=== PATIENT | male | born 2000 | race Hispanic/Latino ===

== ENCOUNTER 2021-03-17 17:27 | Emergency (ER) | payer SELFPAY ==
--- NOTE | 2021-03-17 19:59 | EDPHYS ---
Physician Documentation [facility] Name: Juan Manuel Gupta Jr Age: 20 yrs Sex: Male : 2000 Arrival Date: 03/17/2021 Time: 17:31 Bed 12 Private MD: ED Physician Darryl Garcia HPI: 03/17 19:49 This 20 yrs old Male presents to ER via Ambulatory with complaints of Jaw jr8 swelling. 19:49 Onset: The symptoms/episode began/occurred gradually, 1 week(s) ago. Duration: The jr8 symptoms are continuous. Modifying factors: The symptoms are alleviated by nothing, the symptoms are aggravated by chewing. Associated signs and symptoms: Pertinent positives: pain, swelling. Severity of symptoms: At their worst the symptoms were moderate, in the emergency department the symptoms are unchanged. The patient has experienced a previous episode. The patient has not recently seen a physician. Patient stated that the last time this happened he had to have Abx. Started to swell again and tried OTC meds but now getting worse . Historical: - Allergies: 17:50 No Known Allergies; jd3 - Home Meds: 17:50 None [Active]; jd3 - PMHx: 17:50 None; jd3 - PSHx: 17:50 None; jd3 - Immunization history:: Adult Immunizations up to date. - Social history:: Smoking status: Reported history of juuling and/or vaping. ROS: 19:49 Eyes: Negative for injury, pain, redness, and discharge, Neck: Negative for injury, jr8 pain, and swelling, Cardiovascular: Negative for chest pain, palpitations, and edema, Respiratory: Negative for shortness of breath, cough, wheezing, and pleuritic chest pain, Abdomen/GI: Negative for abdominal pain, nausea, vomiting, diarrhea, and constipation, Back: Negative for injury and pain, MS/Extremity: Negative for injury and deformity, Skin: Negative for injury, rash, and discoloration, Neuro: Negative for headache, weakness, numbness, tingling, and seizure. 19:49 ENT: Positive for Jaw swelling right side, Negative for dental pain. Exam: 19:49 Eyes: Pupils equal round and reactive to light, extra-ocular motions intact. Lids and jr8 lashes normal. Conjunctiva and sclera are non-icteric and not injected. Cornea within normal limits. Periorbital areas with no swelling, redness, or edema. ENT: Nares patent. No nasal discharge, no septal abnormalities noted. Tympanic membranes are normal and external auditory canals are clear. Oropharynx with no redness, swelling, or masses, exudates, or evidence of obstruction, uvula midline. Mucous membranes moist. gingivitis present diffusely. Decay with cavity noted right second molar 19:49 Neck: Trachea midline, no thyromegaly or masses palpated, and no cervical lymphadenopathy. Supple, full range of motion without nuchal rigidity, or vertebral point tenderness. No Meningismus. Cardiovascular: Regular rate and rhythm with a normal S1 and S2. No gallops, murmurs, or rubs. Normal PMI, no JVD. No pulse deficits. Respiratory: Lungs have equal breath sounds bilaterally, clear to auscultation and percussion. No rales, rhonchi or wheezes noted. No increased work of breathing, no retractions or nasal flaring. Abdomen/GI: Soft, non-tender, with normal bowel sounds. No distension or tympany. No guarding or rebound. No evidence of tenderness throughout. Back: No spinal tenderness. No costovertebral tenderness. Full range of motion. Skin: Warm, dry with normal turgor. Normal color with no rashes, no lesions, and no evidence of cellulitis. MS/ Extremity: Pulses equal, no cyanosis. Neurovascular intact. Full, normal range of motion. Neuro: Awake and alert, GCS 15, oriented to person, place, time, and situation. Cranial nerves II-XII grossly intact. Motor strength 5/5 in all extremities. Sensory grossly intact. Cerebellar exam normal. Normal gait. 19:49 Head/face: Noted is swelling, that is moderate, of the right jaw. Vital Signs: 17:50 BP 142 / 92; Pulse 89; Resp 16 S; Temp 99.5(TE); Pulse Ox 100% on R/A; Weight 62.6 kg jd3 (R); Height 5 ft. 7 in. (170.18 cm) (R); Pain 2/10; 17:50 Body Mass Index 21.61 (62.60 kg, 170.18 cm) jd3 MDM: 19:41 Patient medically screened. jr8 19:49 Data reviewed: vital signs, nurses notes, and as a result, I will discharge patient. jr8 Data interpreted: Pulse oximetry: on room air is 100 %. Interpretation: normal. Counseling: I had a detailed discussion with the patient and/or guardian regarding: the historical points, exam findings, and any diagnostic results supporting the discharge/admit diagnosis, the need for outpatient follow up, a dentist, to return to the emergency department if symptoms worsen or persist or if there are any questions or concerns that arise at home. ED course: Discussed with patient that we will start with Abx. If worse to immediately come back. If not better to come back for CT of face . Administered Medications: No medications were administered Disposition: 03/18 07:11 Co-signature as Attending Physician, Darryl Garcia MD I agree with the assessment and khanh plan of care. Disposition: 03/17/21 19:58 Discharged to Home. Impression: Jaw pain, Swelling Jaw, Periapical abscess without sinus. - Condition is Stable. - Discharge Instructions: Dental Abscess, Salivary Gland Infection, Salivary Stone. - Prescriptions for Augmentin 875- 125 mg Oral Tablet - take 1 tablet by ORAL route every 12 hours for 10 days; 20 tablet. - Medication Reconciliation Form, Thank You Letter, Antibiotic Education, Prescription Opioid Use form. - Follow up: Private Physician; When: 5 - 6 days; Reason: Recheck today's complaints, Continuance of care, Re-evaluation by your physician. - Problem is new. - Symptoms have improved. Signatures: Darryl Garcia MD MD cha Munoz, Edgar, RN RN Lewis Ritter PA PA jr8 Gopi Carl RN RN jd3 Corrections: (The following items were deleted from the chart) 03/17 20:02 19:58 03/17/2021 19:58 Discharged to Home. Impression: Jaw pain; Swelling Jaw; em Periapical abscess without sinus. Condition is Stable. Forms are Medication Reconciliation Form, Thank You Letter, Antibiotic Education, Prescription Opioid Use. Follow up: Private Physician; When: 5 - 6 days; Reason: Recheck today's complaints, Continuance of care, Re-evaluation by your physician. Problem is new. Symptoms have improved. jr8
--- NOTE | 2021-03-17 19:59 | ER ---
Nurse's Notes [facility] Name: Juan Manuel Gupta Jr Age: 20 yrs Sex: Male : 2000 Arrival Date: 03/17/2021 Time: 17:31 Bed 12 Private MD: Diagnosis: Jaw pain;Swelling Jaw;Periapical abscess without sinus Presentation: 03/17 17:48 Chief complaint: Patient states: "I am having right sided jaw swelling. not to much jd3 pain, just aching.". Coronavirus screen: At this time, the client does not indicate any symptoms associated with coronavirus-19. Ebola Screen: Patient negative for fever greater than or equal to 101.5 degrees Fahrenheit, and additional compatible Ebola Virus Disease symptoms. Initial Sepsis Screen: Does the patient meet any 2 criteria? No. Patient's initial sepsis screen is negative. Does the patient have a suspected source of infection? No. Patient's initial sepsis screen is negative. Risk Assessment: Do you want to hurt yourself or someone else? Patient reports no desire to harm self or others. Onset of symptoms was March 10, 2021. 17:48 Method Of Arrival: Ambulatory jd3 17:48 Acuity: [id number] 4 jd3 Historical: - Allergies: 17:50 No Known Allergies; jd3 - Home Meds: 17:50 None [Active]; jd3 - PMHx: 17:50 None; jd3 - PSHx: 17:50 None; jd3 - Immunization history:: Adult Immunizations up to date. - Social history:: Smoking status: Reported history of juuling and/or vaping. Screenin:47 Abuse screen: Denies threats or abuse. Nutritional screening: No deficits noted. em Tuberculosis screening: No symptoms or risk factors identified. Fall Risk None identified. Assessment: 19:41 General: Appears in no apparent distress. comfortable, Behavior is calm, cooperative, em appropriate for age. Pain: Complains of pain in right jaw Pain currently is 2 out of 10 on a pain scale. Neuro: Level of Consciousness is awake, alert, obeys commands, Oriented to person, place, time, situation. Cardiovascular: Capillary refill < 3 seconds Patient's skin is warm and dry. Respiratory: Airway is patent Respiratory effort is even, unlabored, Respiratory pattern is regular, symmetrical. Derm: Skin is intact, is healthy with good turgor, Skin is pink, warm \\T\\ dry. Musculoskeletal: Capillary refill < 3 seconds, Range of motion: intact in all extremities, Swelling present in right jaw. Vital Signs: 17:50 BP 142 / 92; Pulse 89; Resp 16 S; Temp 99.5(TE); Pulse Ox 100% on R/A; Weight 62.6 kg jd3 (R); Height 5 ft. 7 in. (170.18 cm) (R); Pain 2/10; 17:50 Body Mass Index 21.61 (62.60 kg, 170.18 cm) jd3 ED Course: 17:31 Patient arrived in ED. ds1 17:49 Triage completed. jd3 17:50 Arm band placed on. jd3 19:40 Mao Pascual RN is Primary Nurse. em 19:41 Lewis Reynaga PA is PHCP. jr8 19:41 Darryl Garcia MD is Attending Physician. jr8 19:47 Patient has correct armband on for positive identification. Bed in low position. Call em light in reach. 20:02 No provider procedures requiring assistance completed. Patient did not have IV access em during this emergency room visit. Administered Medications: No medications were administered Outcome: 19:58 Discharge ordered by . jr8 20:02 Discharged to home ambulatory. em 20:02 Condition: stable 20:02 Discharge instructions given to patient, Instructed on discharge instructions, follow up and referral plans. medication usage, Demonstrated understanding of instructions, follow-up care, medications, Prescriptions given X 1. 20:02 Patient left the ED. em Signatures: aMo Pascual RN RN Sola Castellanos ds1 Lewis Reynaga PA PA jrGopi Cifuentes RN RN jd3
[2021-03-17 20:25] VITALS: BP 142/92; TEMP 99.5; O2SAT 100
== END 2021-03-17 20:02 | disposition home or self-care (01) ==
LOC: ER 17:27
DX: K04.7 Periapical abscess without sinus (principal); R22.9 Localized swelling, mass and lump, unspecified

== ENCOUNTER 2023-07-04 10:07 | Emergency (ER) | payer SELFPAY ==
--- OUTSIDE RECORDS SUMMARY | 2023-07-04 10:10 | XMS REPORT | Continuity of Care Document ---
:2000 Author Organization [facility] t Address [address] [place] [address] Care Team Providers Name Role Phone Pcp, Patient Does Not Have A Primary Care Physician [phone] ALBINO THAKKAR Attending Clinician Unavailable SERVANDO FLOREZ Attending Clinician Unavailable Servando Florez MD Attending Clinician Doctor Unassigned, [place] Attending Clinician Unavailable Kiera Riddle Attending Clinician Albino Thakkar DDS Attending Clinician Ermelinda Thompson MD Attending Clinician [phone] Jerome Baltazar MD Attending Clinician ALBINO THAKKAR Admitting Clinician Unavailable Albino Thakkar DDS Admitting Clinician Problems Condition Condition Condition Status Onset Resolution Last Treating Co mments Source Name Details Category Date Date Treatment Clinician Date Facial Facial Disease Active Univers swelling swelling 03-21 ity of 00:00: [address] Allergies, Adverse Reactions, Alerts Allergy Allergy Status Severity Reaction(s) Onset Inactive Treating Comm ents Source Name Type Date Date Clinician NO KNOWN Drug Active Univers ALLERGIE Class ity of S [facility] Social History Social Habit Start Date Stop Date Quantity Comments Source Exposure to Not sure [facility] SARS-CoV-2 (event) [facility] Gender identity Universit y of [facility] Sexual orientation Univer sity of [facility] History of Social 2021-03-22 2021-03-22 Univers ity of function 00:00:00 00:00:00 [facility] Tobacco use and 2021-03-21 2021-03-21 Smokeless Universit y of exposure 00:00:00 00:00:00 tobacco non-user [facility]ly [facility] Sex Assigned At [birth year] Universit y of 00:00:00 00:00:00 [facility] Smoking Status Start Date Stop Date Source Never smoked tobacco [facility] Medications Ordered Filled Start Stop Current Ordering Indication Dosage Frequency Signature Comments Components Source Medication Medication Date Date Medication? Clinician (SIG) Name Name cefTRIAXone Yes 2000mg 2,000 mg, Univers (ROCEPHIN) 6-30 IV ity of 2,000 mg in 08:15: Piggyback, [place] NaCl 0.9% 00 Q24H ABX, Medic al (NS) 100 mL First dose Br anch piggyback (after last modificati on) on Sun03/23/21 at 0315, Until Discontinu ed, 100 mL
Reas on for Anti-Infec tive: Documented Infection< br>Documen sydni Infection Site: HEENT
D uration of Therapy: 7 days cefTRIAXone Yes 2000mg 2,000 mg, Univers (ROCEPHIN) 6-30 IV ity of 2,000 mg in 08:15: [place], [place] NaCl 0.9% 00 Q24H ABX, Medic al (NS) 100 mL First dose Br anch piggyback (after last modificati on) on Sun03/23/21 at 0315, Until Discontinu ed, 100 mL
Reas on for Anti-Infec tive: Documented Infection< br>Documen sydni Infection Site: HEENT
D uration of Therapy: 7 days ibuprofen Yes [id number] 600mg Take 1 Univers 600 mg 6-29 tablet by ity of tablet 00:00: mouth [place] 00 every 6 Medical (six) Branch hours as needed for Pain (scale 4-6). ibuprofen Yes [id number] 600mg Take 1 Univers 600 mg 6-29 tablet by ity of tablet 00:00: mouth [place] 00 every 6 Medical (six) Branch hours as needed for Pain (scale 4-6). ibuprofen Yes [id number] 600mg Take 1 Univers 600 mg 6-29 tablet by ity of tablet 00:00: mouth [place] 00 every 6 Medical (six) Branch hours as needed for Pain (scale 4-6). ibuprofen Yes [id number] 600mg Take 1 Univers 600 mg 6-29 tablet by ity of tablet 00:00: mouth [place] 00 every 6 Medical (six) Branch hours as needed for Pain (scale 4-6). ibuprofen Yes [id number] 600mg Take 1 Univers 600 mg 6-29 tablet by ity of tablet 00:00: mouth [place] 00 every 6 Medical (six) Branch hours as needed for Pain (scale 4-6). chlorhexidi No [id number] 15mL Swish and Univers ne 0.12 % 03-22 07-14 spit out ity o f mouthwash 00:00: 04:59 15 mL 2 [place] 00 :[place] (two) Medical times Branch daily for 14 days. chlorhexidi 2020- No [id number] 15mL Swish and Univers ne 0.12 % 03-22 07-14 spit out ity o f mouthwash 00:00: 04:59 15 mL 2 [place] 00 :[place] (two) Medical times Branch daily for 14 days. chlorhexidi 2020- No [id number] 15mL Swish and Univers ne 0.12 % 03-22 07-14 spit out ity o f mouthwash 00:00: 04:59 15 mL 2 [place] 00 :[place] (two) Medical times Branch daily for 14 days. chlorhexidi 2020- No [id number] 15mL Swish and Univers ne 0.12 % 03-22 07-14 spit out ity o f mouthwash 00:00: 04:59 15 mL 2 [place] 00 :[place] (two) Medical times Branch daily for 14 days. HYDROcodone 2020- No [id number] 1{tbl} Take 1 U nivers -acetaminop 6-29 07-07 tablet by it y of hen ([employer]) 00:00: 04:59 [place] 5-325 mg 00 :00 every 6 Medical tablet (six) Branch hours as needed for Pain (scale 4-6) for up to 7 days. Indication s: acute pain HYDROcodone 2020- No 4647 1{tbl} Take 1 U nivers -acetaminop 6-29 07-07 tablet by it y of hen ([employer]) 00:00: 04:59 [place] 5-325 mg 00 :00 every 6 Medical tablet (six) Branch hours as needed for Pain (scale 4-6) for up to 7 days. Indication s: acute pain HYDROcodone 2020- No 4647 1{tbl} Take 1 U nivers -acetaminop 6-29 07-07 tablet by it y of hen ([employer]) 00:00: 04:59 [place] 5-325 mg 00 :00 every 6 Medical tablet (six) Branch hours as needed for Pain (scale 4-6) for up to 7 days. Indication s: acute pain clindamycin 2020- No [id number] 300mg Take 2 Univers 150 mg 6-29 07-05 capsules ity of capsule 00:00: 04:59 by mouth 4 [place] 00 :00 (four) Medical times Branch daily for 5 days. clindamycin 2020- No [id number] 300mg Take 2 Univers 150 mg 6-29 07-05 capsules ity of capsule 00:00: 04:59 by mouth 4 [place] 00 :00 (four) Medical times Branch daily for 5 days. clindamycin 2020- No [id number] 300mg Take 2 Univers 150 mg 6-29 07-05 capsules ity of capsule 00:00: 04:59 by mouth 4 [place] 00 :00 (four) Medical times Branch daily for 5 days. phenol Yes 1{spray 1 [place], Univ ers (SORE 03-21 } Oral, PRN, ity of THROAT 23:32: Starting [place] (PHENOL)) 04 Mon Medical 1.4 % spray 03/21/21 at Br anch bottle 1 1831, [place] Until Discontinu ed, Routine, Sore throat phenol Yes 1{spray 1 [place], Univ ers (SORE 03-21 } Oral, PRN, ity of THROAT 23:32: Starting [place] (PHENOL)) 04 Mon Medical 1.4 % spray 03/21/21 at Br anch bottle 1 1831, [place] Until Discontinu ed, Routine, Sore throat ondansetron 2020- No Slow IV Un venancio (ZOFRAN 03-21 Push, ONCE ity o f (PF)) 22:06: 22:22 INTRA [place] injection 00 :23 PROCEDURE, Medi henrik Starting Branch [facility] 03/21/21 at 1706, Until [facility] 03/21/21 at 1722, Routine, Intra-op bupivacaine 2020- No PRN, Unive rs -epinephrin 03-21 Starting ity of e-pf 22:06: 23:07 [facility] (SENSORCAIN 00 :23 03/21/21 at Pr dical E 1706, Branch W/EPINEPHRI Until [facility]) 0.5 03/21/21 at %-1:200,000 1807, injection Routine, Intra-op acetaminoph 2020- No IV Unive rs en ADULT 03-21 Infusion, ity o f (OFIRMEV) 22:03: 22:22 Administer [place] injection 00 :23 over 15 Medical Minutes, Branch ONCE INTRA PROCEDURE, Starting [facility] 03/21/21 at 1703, Until [facility] 03/21/21 at 1722, Routine, Intra-op dexamethaso 2020- No IV Push, U nivers ne 03-21 ONCE INTRA ity of (DECADRON 20:50: 22:22 PROCEDURE, [place] PHOSPHATE) 00 :23 Starting Medic al injection Mon Branch 03/21/21 at 1550, Until [facility] 03/21/21 at 1722, Routine, Intra-op ceFAZolin 2020- No Slow IV Univ ers (ANCEF) 03-21 Push, ONCE ity o f injection 20:50: 22:22 INTRA [place] 00 :23 PROCEDURE, Medical Starting Branch [facility] 03/21/21 at 1550, Until Sun03/21/21 at 1722, CHERYL, Intra-op lactated 2020- No IV Univers ringers IV 03-21 Infusion, ity of infusion 20:50: 22:22 [place]INUOUS [place] 00 :23 PRN, [facility] Starting Branch [facility] 03/21/21 at 1550, Until Sun03/21/21 at 1722, Routine, Intra-op FENTanyl PF 2020- No Epidural, Univers (SUBLIMAZE 03-21 ONCE INTRA it y of (PF)) 20:50: 22:22 PROCEDURE, [place] injection 00 :23 Starting Medica l [facility] 03/21/21 at 1550, Until Sun03/21/21 at 1722, Routine, Intra-op lidocaine 2020- No Slow IV Univ ers 1% 03-21 Push, ONCE ity of (XYLOCAINE) 20:50: 22:22 INTRA [place] 100 mg/10 00 :23 PROCEDURE, Medi henrik mL (1 %) Starting Branch injection [facility] 03/21/21 at 1550, Until Sun03/21/21 at 1722, Routine, Intra-op propofoL IV 2020- No IV Unive rs infusion 03-21 Infusion, ity o f 20:50: 22:22 ONCE INTRA [place] 00 :23 PROCEDURE, [facility] Starting [facility] 03/21/21 at 1550, Until Sun03/21/21 at 1722, Routine, Intra-op succinylcho 2020- No IV Push, U nivers line 03-21 ONCE INTRA ity of (QUELICIN) 20:50: 22:22 PROCEDURE, [place] injection 00 :23 Starting Medica l [facility] 03/21/21 at 1550, Until Sun03/21/21 at 1722, Routine, Intra-op metroNIDAZO Yes 500mg 500 mg, IV Univers LE in NaCl 03-21 Infusion, ity of (iso-os) 13:00: BID, First [place] (FLAGYL 00 dose on Medical I.V.) RTU [facility] Branch IV infusion 03/21/21 at 500 mg 0800, Until Discontinu ed, 100 mL
Reas on for Anti-Infec tive: Documented Infection< br>Documen sydni Infection Site: HEENT
D uration of Therapy: 7 days chlorhexidi 2020-0 Yes 15mL 15 mL, [facility] ne 03-21 Oral ity of (PERIDEX) 13:00: ([place] 0.12 % 00 Spit Out), Medical mouthwash BID, First Bran ch 15 mL dose on Sun03/21/21 at 0800, Until Discontinu ed, Routine metroNIDAZO Yes 500mg 500 mg, IV Univers LE in NaCl 03-21 Infusion, ity of (iso-os) 13:00: BID, First [place] (FLAGYL 00 dose on Medical I.V.) RTU [facility] IV infusion 03/21/21 at 500 mg 0800, Until Discontinu ed, 100 mL
Reas on for Anti-Infec tive: Documented Infection< br>Documen sydni Infection Site: HEENT
D uration of Therapy: 7 days chlorhexidi 0 Yes 15mL 15 mL, [facility] ne 03-21 Oral ity of (PERIDEX) 13:00: ([place] 0.12 % 00 Spit Out), Medical mouthwash BID, First Bran ch 15 mL dose on Sun03/21/21 at 0800, Until Discontinu ed, Routine dexamethaso No 10mg 10 mg, IV Univers ne 03-21 [place]gy[place], ity of (DECADRON) 11:15: 03:44 Q8H, 3 [place] 10 mg in 00 :00 doses, Medical NaCl 0.9% First dose Bran ch (NS) 50 mL (after piggyback last modificati on) on Sun03/21/21 at 0615, Last dose on Sun03/21/21 at 2200, 50 mL cefTRIAXone 2020- No 2000mg 2,000 mg, Univers (ROCEPHIN) 03-21 IV ity of 2,000 mg in 08:15: 13:41 [place], [place] NaCl 0.9% 00 :01 Q24H ABX, Medic al (NS) 100 mL First dose Br anch MINI-BAG on Sun03/21/21 at 0315, Until Discontinu ed, 100 mL
Reas on for Anti-Infec tive: Documented Infection< br>Documen sydni Infection Site: HEENT<br&g t;Duration of Therapy: 7 days lactated 2020-0 2020- No 1000mL at 125 [facility] ers ringers IV 03-21 06-29 mL/hr, ity of infusion 07:15: 13:48 1,000 mL, [place] 1,000 mL 00 :56 IV Medical Infusion, Branch CONTINUOUS , Starting Sun03/21/21 at 0215, Until Sun03/22/21 at 0848, Routine naloxone Yes .1mg 0.1 mg, Univer s (NARCAN) 03-21 Slow IV ity of injection 07:05: Push, PRN [place] 0.1 mg 55 - SEE Medical INSTRUCTIO Branch NS, Starting Sun03/21/21 at 0205, Until Discontinu ed, Routine, Sedation/R espiratory Depression , See admin instructio ns. HYDROcodone 0 Yes 7.5mg 7.5 mg, Un venancio -acetaminop 03-21 Oral, ity of hen (HYCET) 07:05: Q6HPRN, [place] 7.5-325 55 Starting Medical mg/15 mL Mon Branch solution 03/21/21 at 7.5 mg 0205, Until Discontinu ed, Routine, Pain (scale 4-6) ibuprofen 2020-0 Yes 600mg 600 mg, Univ ers (ADVIL 03-21 Oral, ity of CHILDREN'S) 07:05: Q6HPRN, [place] 100 mg/5 mL 55 Starting Medi henrik oral Mon Branch suspension 03/21/21 at 600 mg 0205, Until Discontinu ed, Routine, Pain (scale 1-3) ondansetron 0 Yes 4mg 4 mg, Slow Univers (ZOFRAN 03-21 IV Push, ity of (PF)) 07:05: Q4HPRN, [place] injection 4 55 Starting Medi henrik mg Mon Branch 03/21/21 at 0205, Until Discontinu ed, Routine, Nausea and Vomiting (N/V) naloxone 0 Yes .1mg 0.1 mg, Univer s (NARCAN) 03-21 Slow IV ity of injection 07:05: Push, PRN [place] 0.1 mg 55 - SEE Medical INSTRUCTIO Branch NS, Starting 03/21/21 at 0205, Until Discontinu ed, Routine, Sedation/R espiratory Depression , See admin instructio ns. HYDROcodone 0 Yes 7.5mg 7.5 mg, Un venancio -acetaminop 03-21 Oral, ity of hen (HYCET) 07:05: Q6HPRN, [place] 7.5-325 55 Starting Medical mg/15 mL [facility] solution 03/21/21 at 7.5 mg 0205, Until Discontinu ed, Routine, Pain (scale 4-6) ibuprofen 0 Yes 600mg 600 mg, Univ ers (ADVIL 03-21 Oral, ity of CHILDREN'S) 07:05: Q6HPRN, [place] 100 mg/5 mL 55 Starting Medi henrik oral [facility] suspension 03/21/21 at 600 mg 0205, Until Discontinu ed, Routine, Pain (scale 1-3) ondansetron Yes 4mg 4 mg, Slow Univers (ZOFRAN 03-21 IV Push, ity of (PF)) 07:05: Q4HPRN, [place] injection 4 55 Starting Medi henrik mg [facility] 03/21/21 at 0205, Until Discontinu ed, Routine, Nausea and Vomiting (N/V) morpHINE 2020- No 2mg 2 mg, Slow Un venancio injection 2 03-21-30 IV Push, ity of mg 07:05: 07:04 [place], [place] 55 :55 Starting [facility] 03/21/21 at 0205, Until Sun03/23/21 at 0204, Routine, Pain (scale 7-10) morpHINE 0 2020- No 2mg 2 mg, Slow Un venancio injection 2 03-2130 IV Push, ity of mg 07:05: 07:04 Q3[place], [place] 55 :55 Starting [facility] 03/21/21 at 0205, Until Sun03/23/21 at 0204, Routine, Pain (scale 7-10) Vital Signs Vital Name Observation Time Observation Value Comments Source Systolic blood 2023-04-20 00:27:00 135 mm[Hg] Univer sity of pressure [place] [facility] Diastolic blood 2023-04-20 00:27:00 90 mm[Hg] Unive rsity of pressure [place] [facility] Heart rate 2023-04-20 00:27:00 76 /min Universi ty of [place] [facility] Body temperature 2023-04-20 00:27:00 36.61 [place] Univ ersity of [place] [facility] Respiratory rate 2023-04-20 00:27:00 18 /min Univ ersity of [place] [facility] Body height 2023-04-20 00:27:00 167.6 cm Universi ty of [place] [facility] Oxygen saturation in 2023-04-20 00:27:00 100 /min University of Arterial blood by [facility] henrik Pulse oximetry Branch Systolic blood 2021-03-22 12:43:00 126 mm[Hg] Univer sity of pressure [place] [facility] Diastolic blood 2021-03-22 12:43:00 90 mm[Hg] Unive rsity of pressure [place] [facility] Heart rate 2021-03-22 12:43:00 74 /min Universi ty [facility] [place] [facility] Body temperature 2021-03-22 12:43:00 35.44 [place] Univ ersity of [place] [facility] Respiratory rate 2021-03-22 12:43:00 18 /min Univ ersity of [place] [facility] Oxygen saturation in 2021-03-22 12:43:00 98 /min University of Arterial blood by [facility] Pulse oximetry Branch BMI 2021-03-21 06:00:00 18.34 kg/m2 [facility]i ty [facility] [place] [facility] Body height 2021-03-21 06:00:00 170.2 cm Universi ty [facility] [place] [facility] Body weight 2021-03-21 06:00:00 53.116 kg [facility]i ty [facility] [place] [facility] Systolic blood 2021-03-21 22:20:00 144 mm[Hg] Univer sity of pressure [place] [facility] Diastolic blood 2021-03-21 22:20:00 90 mm[Hg] Unive rsity of pressure [place] [facility] Heart rate 2021-03-21 22:20:00 94 /min [facility]i ty [facility] [place] [facility] Body temperature 2021-03-21 22:20:00 36 Ashtyn [facility] Respiratory rate 2021-03-21 22:20:00 18 /min [facility] Oxygen saturation in 2021-03-21 22:20:00 100 /min [facility] Arterial blood by [facility] Pulse oximetry Branch Body height 2021-03-21 06:00:00 170.2 cm [facility] Body weight 2021-03-21 06:00:00 53.116 kg [facility] BMI 2021-03-21 06:00:00 18.34 kg/m2 [facility] Procedures Procedure Date / Time Performing Clinician Source Performed NOTICE OF PRIVACY 2023-04-20 00:21:51 Doctor Unassigned, No [facility] PRACTICES [facility] CONSENT/REFUSAL FOR 2023-04-20 00:21:04 Doctor Unassigned, No [facility] DIAGNOSIS AND TREATMENT [facility] EXTERNAL PROVIDER RECORDS 2021-03-31 05:01:00 Doctor Unassigned, No [facility] EXTRA TUBE LT. GREEN 2021-03-22 08:53:00 Albino Thakkar [facility] EXTRA TUBE LT. GREEN 2021-03-22 08:53:00 Albino Thakakr [facility] CBC WITH DIFF 2021-03-22 08:50:00 [facility] CBC WITH DIFF 2021-03-22 08:50:00 [facility] ASPIRATE OR ABSCESS 2021-03-21 21:09:34 Albino Thakkar [facility] CULTURE(AEROBIC/ANAEROBIC Medica l [place] ) ASPIRATE OR ABSCESS 2021-03-21 21:09:34 Albino Thakkar [facility] CULTURE(AEROBIC/ANAEROBIC Medica l Branch ) INTUBATION 2021-03-21 21:01:41 Guillermo Li [facility] INCISION AND DRAINAGE 2021-03-21 20:31:00 Albino Thakkar [facility] ORAL CAVITY [facility] TOOTH EXTRACTION 2021-03-21 20:31:00 Albino Thakkar [facility] INCISION AND DRAINAGE 2021-03-21 20:31:00 Albion Thakkar Uni versity [facility] ORAL CAVITY [facility] TOOTH EXTRACTION 2021-03-21 20:31:00 Albino Thakkar Universi ty [facility] XR ORTHOPANTOGRAM TEETH 2021-03-21 08:41:42 [facility] 2021-03-21 08:41:42 [facility] Encounters Start End Encounter Admission Attending Care Care Encounter Source Date/Time Date/Time Type Type Clinicians Facility Department ID 2021-03-[address] [facility] [id number] Univers 01:50:00 ALBINO ross [facility] 2023-04-19 2023-04-19 Emergency X [facility] ERT [id number] Univers 19:30:00 20:46:00 SERVANDO ross [facility] 2023-04-19 2023-04-19 Emergency [facility] [id number] Univers 19:30:00 20:46:00 [facility] S SHANA [id number] ity of [place] 4[facility]2.7.2.[id number] [facility] 084 Branch 2021-03-31 2021-03-31 Orders Doctor DINESH [id number] Univers 00:00:00 00:00:00 Only Unassigned, HAR[place] [id number] ity of [place] [facility] 4.2.7.2.686 [place] [id number] [facility] 009 Branch 2021-03-23 2021-03-23 Transition Toya Riddle [id number] Univers 00:00:00 00:00:00 of Care Kiera Tapia [id number] ity of [place]2.[place] [id number] [facility] 403 Branch 2021-03-21 2021-03-22 [facility] Rose Thakkar [id number] Univers 01:50:00 12:25:00 Encounter Albino Ramos [id number] ity of Hospital [id number] [place] [id number] [facility] 091 Branch 2021-03-21 2021-03-21 Surgery Rose Thakkar [id number] Univers 16:01:00 17:27:00 Albino Ramos [id number] it y of [facility] [id number] [place] [id number] [facility] 103 Branch 2021-03-21 2021-03-21 Anesthesia Moya Ermelinda Webb [id number] Univers 15:39:00 17:22:00 Event Jerome Baltazar [id number] ity of [facility] [id number] [place] [id number] [place] [address] Branch Results Test Description Test Time Test Comments Results Result Comments Source CBC WITH DIFF 2021-03-22 10:20:24 Test Item Value Reference Range Interpretation Comme nts WBC (test code = 6690-2) See_Comment H [A utomated message] The system which ge nerated this result transmit sydni reference range: 4.20 - 1 0.70 10*3/?L. The reference r emmanuel was not used to interpr et this result as normal/abnor mal. RBC (test code = 789-8) See_Comment [Au tomated message] The system which ge nerated this result transmit sydni reference range: 4.26 - 5 .52 10*6/?L. The reference r emmanuel was not used to interpr et this result as normal/abnor mal. HGB (test code = 718-7) 12.6 g/dL 12.2-16.4 HCT (test code = 4544-3) 38.3 % 38.4-49.3 L MCV (test code = 787-2) 85.7 fL 81.7-95.6 MCH (test code = 785-6) 28.2 pg 26.1-32.7 MCHC (test code = 786-4) 32.9 g/dL 31.2-35.0 RDW-SD (test code = 44394-7) 39.8 fL 38.5-51.6 RDW-CV (test code = 788-0) 12.7 % 12.1-15.4 PLT (test code = 777-3) See_Comment H [Au tomated message] The system which ge nerated this result transmit sydni reference range: 150 - 32 8 10*3/?L. The reference range was not used to interpret th is result as normal/abnormal . MPV (test code = 94091-8) 10.4 fL 9.8-13.0 NRBC/100 WBC (test code = See_Comment [ Automated message] The [id number]) system which ge nerated this result transmit sydni reference range: 0.0 - 10 .0 /100 WBCs. The reference r emmanuel was not used to interpr et this result as normal/abnor mal. NRBC x10^3 (test code = <0.01 See_Comment [Au tomated message] The [id number]) system which ge nerated this result transmit sydni reference range: 10*3/?L. The reference range was not u sed to interpret this result as normal/abnormal . GRAN MAT (NEUT) % (test code 94.3 % = 770-8) IMM GRAN % (test code = 0.50 % [id number]) LYMPH % (test code = 736-9) 4.1 % MONO % (test code = 5905-5) 1.0 % EOS % (test code = 713-8) 0.0 % BASO % (test code = 706-2) 0.1 % GRAN MAT x10^3(ANC) (test 12.32 10*3/uL 1.99-6.95 H code = 1780304394) IMM GRAN x10^3 (test code = 0.07 10*3/uL 0.00-0.06 H [id number]) LYMPH x10^3 (test code = 0.53 10*3/uL 1.09-3.23 L 731-0) MONO x10^3 (test code = 0.13 10*3/uL 0.36-1.02 L 742-7) EOS x10^3 (test code = <0.03 0.06-0.53 L 711-2) BASO x10^3 (test code = <0.03 0.01-0.09 704-7) Lab Interpretation (test Abnormal code = 69722-2) [facility] WITH [id number] 10:20:24 Test Item Value Reference Range Interpretation Comments WBC (test code = See_Comment H [Automated 6690-2) message] The system which generated this result transmit sydni reference range : 4.20 - 10.70 10*3/?L. The reference range was not used to interpret this result as normal/abnormal . RBC (test code = See_Comment [Automated 789-8) message] The system which generated this result transmit sydni reference range : 4.26 - 5.52 10*6/?L. The reference range was not used to interpret this result as normal/abnormal . HGB (test code = 12.6 g/dL 12.2-16.4 718-7) HCT (test code = 38.3 % 38.4-49.3 L 4544-3) MCV (test code = 85.7 fL 81.7-95.6 787-2) MCH (test code = 28.2 pg 26.1-32.7 785-6) MCHC (test code = 32.9 g/dL 31.2-35.0 786-4) RDW-SD (test code = 39.8 fL 38.5-51.6 27623-8) RDW-CV (test code = 12.7 % 12.1-15.4 788-0) PLT (test code = See_Comment H [Automated 777-3) message] The system which generated this result transmit sydni reference range : 150 - 328 10*3/ ?L. The reference range was not u sed to interpret th is result as normal/abnormal . MPV (test code = 10.4 fL 9.8-13.0 76453-3) NRBC/100 WBC (test See_Comment [Automat ed code = [id number]) message] The system which generated this result transmit sydni reference range : 0.0 - 10.0 /100 WBCs. The reference range was not used to interpret this result as normal/abnormal . NRBC x10^3 (test code <0.01 See_Comment [Auto mated = [id number]) message] The system which generated this result transmit sydni reference range : 10*3/?L. The reference range was not used to interpret this result as normal/abnormal . GRAN MAT (NEUT) % 94.3 % (test code = 770-8) IMM GRAN % (test code 0.50 % = 6696460737) LYMPH % (test code = 4.1 % 736-9) MONO % (test code = 1.0 % 5905-5) EOS % (test code = 0.0 % 713-8) BASO % (test code = 0.1 % 706-2) GRAN MAT x10^3(ANC) 12.32 10*3/uL 1.99-6.95 H (test code = 7977249128) IMM GRAN x10^3 (test 0.07 10*3/uL 0.00-0.06 H code = 8722075271) LYMPH x10^3 (test code 0.53 10*3/uL 1.09-3.23 L = 731-0) MONO x10^3 (test code 0.13 10*3/uL 0.36-1.02 L = 742-7) EOS x10^3 (test code = <0.03 0.06-0.53 L 711-2) BASO x10^3 (test code <0.03 0.01-0.09 = 704-7) Lab Interpretation Abnormal (test code = 80488-8) [facility]:41Guillermo Li MD ? ? 03/21/2021 ?4:03 PMIntubation General Information and Staff Anesthesiologist: Jerome Baltazar MDPerformed: anesthesiologist Indications and Patient ConditionIndications for airway management: anesthesia and airway protectionSpontaneous Ventilation: absentSedation level: deepPreoxygenated: yesPatient position: reverse TrendelenburgMask difficulty assessment: 1 - vent by mask FinalAirway DetailsFinal airway type: endotracheal airway Successful airway: ETTCuffed: yes Successful intubation technique: direct laryngoscopyFacilitating devices/methods: intubating styletEndotracheal tube insertion site: oralBlade: MillerBlade size: #2ETT size (mm): 7.0Cormack-Lehane Classification: grade I - full view of glottisPlacement verified by: capnometry Cuff volume (mL): 10Number of attempts at approach: 2 Additional CommentsNasal approach attempted, airway anterior and inflamed. ?Oral intubation performed after discussing with surgical team. ?Easy intubation with BURP maneuver [facility] [id number] 15:15:04 Left maxillary and mandibular 2nd molar teeth dental caries. Preliminary Report Dictated by Resident: Last Sparks reviewed this study and agree with the above reportwith the following additions: Right first mandibular molar dental caries. Last Meehan MD., have reviewedthis study and agree with theabove report.XR ORTHOPANTOGRAM TEETH HISTORY: 20 years-old; Male; dental exam COMPARISON: None FINDINGS: There are dental caries of the left maxillary and mandibular 2nd molarteeth is noted with no significant periapical lucency. An impacted rightmandibular wisdom tooth isseen. [facility], Radiant Results Inft User - 03/21/2021 10:16 AM CDT XR ORTHOPANTOGRAM TEETHHISTORY: 20 years-old; Male; dental exam COMPARISON: NoneFINDINGS:There are dental caries of the left maxillary and mandibular 2nd molarteeth is noted withno significant periapical lucency. An impacted rightmandibular wisdom tooth is seen.IMPRESSIONLeft maxillary and mandibular 2nd molar teeth dental caries.Preliminary Report Dictated by Resident: Last Dunlap reviewed this study and agree with the above reportwith the following additions: Right first mandibular molar dental caries.Last Meehan MD., have reviewed this study and agree with theabove report.[facility] 2021-03-21 15:15:04 Left maxillary and mandibular 2nd molar teeth dental caries. Preliminary Report Dictated by Resident: Last Sparks reviewed this study and agree with the above reportwith the following additions: Right first mandibular molar dental caries. Last Meehan MD., have reviewedthis study and agree with theabove report.XR ORTHOPANTOGRAM TEETH HISTORY: 20 years-old; Male; dental exam COMPARISON: None FINDINGS: There are dental caries of the left maxillary and mandibular 2nd molarteeth is noted with no significant periapical lucency. An impacted rightmandibular wisdom tooth is seen. [facility], Radiant Results Inft User - 03/21/2021 10:16 AM CDT XR ORTHOPANTOGRAM TEETHHISTORY: 20 years-old; Male; dental exam COMPARISON: NoneFINDINGS:There are dental caries of the left maxillary and mandibular 2nd molarteeth is noted withno significant periapical lucency. An impacted rightmandibular wisdom tooth is seen.IMPRESSIONLeft maxillary and mandibular 2nd molar teeth dental caries.Preliminary Report Dictated by Resident: Last Dunlap reviewed this study and agree with the above reportwith the following additions: Right first mandibular molar dental caries.ILast MD., have reviewed this study and agree with theabove report.[facility]
--- NOTE | 2023-07-04 11:01 | EDPHYS ---
Physician Documentation [facility] Name: Juan Manuel Gupta Jr Age: 23 yrs Sex: Male : 2000 Arrival Date: 07/04/2023 Time: 10:07 Bed 20 Private MD: ED Physician Andrew Rivera HPI: 07/04 11:20 This 23 yrs old Male presents to ER via Ambulatory with complaints of Sore kdr Throat. 11:20 The patient presents with sore throat. The patient describes throat pain as dry, kdr intermittent, scratchy. Onset: The symptoms/episode began/occurred today. Severity of symptoms: At their worst the symptoms were mild, in the emergency department the symptoms are unchanged. Modifying factors: The symptoms are alleviated by nothing, the symptoms are aggravated by swallowing, Patient's oral intake status: good. Associated signs and symptoms: The patient has no apparent associated signs or symptoms. The patient has not experienced similar symptoms in the past. Historical: - Allergies: 10:15 No Known Allergies; ll1 - PMHx: 10:15 None; ll1 - PSHx: 10:15 lymph node SX; ll1 - Immunization history:: Adult Immunizations up to date. - Social history:: Smoking status: Patient reports the use of cigarette tobacco products, denies chronic smoking, but will smoke occasionally, Reported history of juuling and/or vaping. ROS: 11:20 Constitutional: Negative for fever, chills, and weight loss, Eyes: Negative for injury, kdr pain, redness, and discharge, Neck: Negative for injury, pain, and swelling, Cardiovascular: Negative for chest pain, palpitations, and edema, Respiratory: Negative for shortness of breath, cough, wheezing, and pleuritic chest pain, Abdomen/GI: Negative for abdominal pain, nausea, vomiting, diarrhea, and constipation, Back: Negative for injury and pain, : Negative for injury, bleeding, discharge, and swelling, 11:20 ENT: Positive for difficulty swallowing, Negative for injury or acute deformity, drainage from ear(s), Exam: 11:20 Constitutional: This is a well developed, well nourished patient who is awake, alert, kdr and in no acute distress. Head/Face: Normocephalic, atraumatic. Eyes: Pupils equal round and reactive to light, extra-ocular motions intact. Lids and lashes normal. Conjunctiva and sclera are non-icteric and not injected. Cornea within normal limits. Periorbital areas with no swelling, redness, or edema. Neck: Trachea midline, no thyromegaly or masses palpated, and no cervical lymphadenopathy. Supple, full range of motion without nuchal rigidity, or vertebral point tenderness. No Meningismus. 11:20 ENT: Posterior pharynx: Tonsils: are normal in appearance, Uvula: midline, erythema, that is mild, exudate, is not appreciated, peritonsillar mass, is not appreciated, pooling of secretions, is not appreciated, Vital Signs: 10:15 BP 121 / 82; Pulse 87; Resp 16; Temp 98.2; Pulse Ox 100% ; Weight 58.06 kg; Height 5 ll1 ft. 7 in. ; Pain 5/10; 11:11 BP 113 / 82; Pulse 75; Resp 16; Pulse Ox 100% ; nj1 10:15 Body Mass Index 20.05 (58.06 kg, 170.18 cm) ll1 10:15 Pain Scale: Adult ll1 MDM: 11:01 Patient medically screened. kdr 11:20 Data reviewed: vital signs, nurses notes, lab test result(s). kdr 07/04 10:12 Order name: Strep kdr 07/04 10:59 Order name: Throat Culture EDMS Administered Medications: No medications were administered Disposition Summary: 07/04/23 11:01 Discharge Ordered Notes: Location: Home kdr Problem: new kdr Symptoms: have improved kdr Condition: Stable kdr Diagnosis - Acute pharyngitis, unspecified kdr Followup: kdr - With: Private Physician - When: 2 - 3 days - Reason: If symptoms return, Further diagnostic work-up, Recheck today's complaints, Continuance of care, Re-evaluation by your physician Discharge Instructions: - Discharge Summary Sheet kdr - Pharyngitis kdr - Sore Throat kdr Forms: - Medication Reconciliation Form kdr - Thank You Letter kdr - Antibiotic Education kdr - Patient Portal Instructions kdr - Leadership Thank You Letter kdr Prescriptions: - Amoxicillin 500 mg Oral capsule - take 1 capsule ORAL route every 8 hours for 7 days; 21 tablet; Refills: 0, kdr Product Selection Permitted Signatures: Dispatcher [employer] EDMS Andrew Rivera MD MD kdr Earl, Lynsay, RN RN ll1
--- NOTE | 2023-07-04 11:01 | ER ---
Nurse's Notes [facility] Name: Juan Manuel Gupta Jr Age: 23 yrs Sex: Male : 2000 Arrival Date: 07/04/2023 Time: 10:07 Bed 20 Private MD: Diagnosis: Acute pharyngitis, unspecified Presentation: 07/04 10:15 Chief complaint: Patient states: Fever 100 on Sunday. Sore throat developed since. ll1 Coronavirus screen: Client denies travel out of the [place] in the last 14 days. fatigue, fever, sore throat, Client presents with at least one sign or symptom that may indicate coronavirus-19. Standard/surgical mask placed on the client. Ebola Screen: Patient denies travel to an Ebola-affected area in the 21 days before illness onset. Initial Sepsis Screen: Does the patient meet any 2 criteria? No. Patient's initial sepsis screen is negative. Does the patient have a suspected source of infection? Yes: Other: sore throat. Risk Assessment: Do you want to hurt yourself or someone else? Patient reports no desire to harm self or others. Onset of symptoms was July 02, 2023. 10:15 Method Of Arrival: Ambulatory ll1 10:15 Acuity: IMTIAZ 4 ll1 Historical: - Allergies: 10:15 No Known Allergies; ll1 - PMHx: 10:15 None; ll1 - PSHx: 10:15 lymph node SX; ll1 - Immunization history:: Adult Immunizations up to date. - Social history:: Smoking status: Patient reports the use of cigarette tobacco products, denies chronic smoking, but will smoke occasionally, Reported history of juuling and/or vaping. Screenin:45 [facility] ED Fall Risk Assessment (Adult) Score/Fall Risk Level 0 - 2 = Low Risk nj1 Oriented to surroundings, Maintained a safe environment, Hourly rounding (assess needs \T\ fall precautionary measures) done. Abuse screen: Denies threats or abuse. Denies injuries from another. Nutritional screening: No deficits noted. Tuberculosis screening: No symptoms or risk factors identified. Assessment: 10:35 General: Appears in no apparent distress. comfortable, Behavior is calm, cooperative, nj1 appropriate for age. Pain: Complains of pain in Throat Pain currently is 5 out of 10 on a pain scale. Neuro: Level of Consciousness is awake, alert, obeys commands, Oriented to person, place, time, situation. Cardiovascular: Patient's skin is warm and dry. Respiratory: Airway is patent Respiratory effort is even, unlabored. EENT: Reports sore throat. 10:51 Respiratory: nj1 Vital Signs: 10:15 BP 121 / 82; Pulse 87; Resp 16; Temp 98.2; Pulse Ox 100% ; Weight 58.06 kg; Height 5 ll1 ft. 7 in. ; Pain 5/10; 11:11 BP 113 / 82; Pulse 75; Resp 16; Pulse Ox 100% ; nj1 10:15 Body Mass Index 20.05 (58.06 kg, 170.18 cm) 1 10:15 Pain Scale: Adult [facility] ED Course: 10:09 Patient arrived in ED. rg4 10:12 Andrew Rivera MD is Attending Physician. kdr 10:14 Arm band placed on Patient placed in an exam room, on a stretcher. ll1 10:17 Triage completed. 1 10:35 Reny Bartholomew, RN is Primary Nurse. nj1 10:38 Strep Sent. nj1 10:45 Patient has correct armband on for positive identification. Bed in low position. Call nj1 light in reach. Provided Education on: call light, fall precautions. 10:49 No provider procedures requiring assistance completed. nj1 11:28 Patient did not have IV access during this emergency room visit. nj1 Administered Medications: No medications were administered Medication: 10:49 VIS not applicable for this client. nj1 Outcome: 11:01 Discharge ordered by . kdr 11:27 Discharged to home ambulatory, nj1 11:27 Condition: stable 11:27 Discharge instructions given to patient, Instructed on discharge instructions, follow up and referral plans. medication usage, Demonstrated understanding of instructions, follow-up care, medications, Prescriptions given X 1, 11:28 Patient left the ED. nj1 Signatures: Andrew Rivera MD MD kdr Garcia, Rubi rg4 Wallace Elliott RN RN 1 Reny Bartholomew RN RN nj
[2023-07-04 11:33] VITALS: TEMP 98.2; O2SAT 100
[2023-07-04 11:34] VITALS: BP 113/82
== END 2023-07-04 11:28 | disposition home or self-care (01) ==
LOC: ER 10:07
DX: J02.9 Acute pharyngitis, unspecified (principal); F17.210 Nicotine dependence, cigarettes, uncomplicated
CPT/HCPCS: 87070; 87081

== ENCOUNTER 2024-10-31 23:49 | Emergency (ER) | payer SELFPAY ==
--- OUTSIDE RECORDS SUMMARY | 2024-10-31 23:51 | XMS REPORT | Continuity of Care Document ---
Author Name Unknown Address [address] [place] [address] [facility] thconnect Address [address] [place] [address] Care Team Providers Care Network Security Architect Name Role Phone Pcp, Patient Does Not Have A Primary Care Physic feliciano ALBINO THAKKAR Attending Clinician Unavailab JEANETTE Brown Attending Clinician Unavailab SERVANDO Cano Attending Clinician Unavailable Servando Florez MD Attending Clinician [phone] Doctor Unassigned, [place] Attending Clinician U Kiera Munoz Attending Clinician [phone] Albino Thakkar DDS Attending Clinician Ermelinda Thompson MD Attending Clinician + Jerome Baltazar MD Attending Clinician [phone] AINSLEY HARPER Attending Clinician Unavailable LUPE SEYMOUR Attending Clinician Unavailable IRVING ARMENTA Attending Clinician Unavailab KORINA Webb Attending Clinician Unavailable ALBINO THAKKAR Admitting Clinician Unavailab Albino Pena DDS Admitting Clinician Problems Condition Name Condition Details Condition Category Status Onset Date Resolution Date Last Treatment Date Treating Clinician Comments Source Facial swelling Facial swelling Disease Active 03-21 00:00: 00 [facility] Allergies, Adverse Reactions, Alerts Allergy Name Allergy Type Status Severity Reaction(s) Onset Date Inactive Date Treating Clinician Comments Source NO KNOWN ALLERGIE S Drug Class Active [facility] Social History Social Habit Start Date Stop Date Quantity Comments Source Exposure to SARS-CoV-2 (event) Not sure [facility] Gender identity [facility] History of Social function 2021-03-22 00:00:00 2021-03-22 00:00:00 [facility] Tobacco use and exposure 2021-03-21 00:00:00 2021-03-21 00:00:00 Smokeless tobacco non-user [facility] Sex Assigned At 2000 00:00:00 2000 00:00:00 [facility] Smoking Status Start Date Stop Date Source Never smoked tobacco [facility] Medications Ordered Medication Name Filled Medication Name Start Date Stop Date Current Medication? Ordering Clinician Indication Dosage Frequency Signature (SIG) Comments Components Source cefTRIAXone (ROCEPHIN) 2,000 mg in NaCl 0.9% (NS) 100 mL piggyback 03-23 08:15: 00 Yes 2000mg 2,000 mg, IV Piggyback, Q24H ABX, First dose (after last modificati on) on Sun03/23/21 at 0315, Until Discontinu ed, 100 mL
Reas on for Anti-Infec tive: Documented Infection< br>Documen sydni Infection Site: HEENT
D uration of Therapy: 7 days [facility] ibuprofen 600 mg tablet 03-22 00:00: 00 Yes [id number] 600mg Take 1 tablet by mouth every 6 (six) hours as needed for Pain (scale 4-6). [facility] chlorhexidi ne 0.12 % mouthwash 03-22 00:00: 00 04-06 04:59 :00 No [id number] 15mL Swish and spit out 15 mL 2 (two) times daily for 14 days. [facility] HYDROcodone -acetaminop hen (NORCO) 5-325 mg tablet 03-22 00:00: 00 03-30 04:59 :00 No [id number] 1{tbl} Take 1 tablet by mouth every 6 (six) hours as needed for Pain (scale 4-6) for up to 7 days. Indication s: acute pain [facility] clindamycin 150 mg capsule 03-22 00:00: 00 03-28 04:59 :00 No [id number] 300mg Take 2 capsules by mouth 4 (four) times daily for 5 days. [facility] phenol (SORE THROAT (PHENOL)) 1.4 % spray bottle 1 [place] 03-21 23:32: 04 Yes 1{spray } 1 [place], Oral, PRN, Starting Sun03/21/21 at 1832, Until Discontinu ed, Routine, Sore throat [facility] ondansetron (ZOFRAN (PF)) injection 03-21 22:06: 00 03-21 22:22 :23 No Slow IV Push, ONCE INTRA PROCEDURE, Starting Sun03/21/21 at 1706, Until Sun03/21/21 at 1722, Routine, Intra-op [facility] bupivacaine -epinephrin e-pf (SENSORCAIN E W/EPINEPHRI NE) 0.5 %-1:200,000 injection 03-21 22:06: 00 03-21 23:07 :23 No PRN, Starting Sun03/21/21 at 1706, Until Sun03/21/21 at 1807, Routine, Intra-op [facility] acetaminoph en ADULT (OFIRMEV) injection 03-21 22:03: 00 03-21 22:22 :23 No IV Infusion, Administer over 15 Minutes, ONCE INTRA PROCEDURE, Starting Sun03/21/21 at 1703, Until Sun03/21/21 at 1722, Routine, Intra-op [facility] dexamethaso ne (DECADRON PHOSPHATE) injection 03-21 20:50: 00 03-21 22:22 :23 No IV Push, ONCE INTRA PROCEDURE, Starting Sun03/21/21 at 1550, Until Sun03/21/21 at 1722, Routine, Intra-op [facility] ceFAZolin (ANCEF) injection 03-21 20:50: 00 03-21 22:22 :23 No Slow IV Push, ONCE INTRA PROCEDURE, Starting Sun03/21/21 at 1550, Until Sun03/21/21 at 1722, CHERYL, Intra-op [facility] lactated ringers IV infusion 03-21 20:50: 00 03-21 22:22 :23 No IV Infusion, CONTINUOUS PRN, Starting Sun03/21/21 at 1550, Until Sun03/21/21 at 1722, Routine, Intra-op [facility] FENTanyl PF (SUBLIMAZE (PF)) injection 03-21 20:50: 00 03-21 22:22 :23 No Epidural, ONCE INTRA PROCEDURE, Starting Sun03/21/21 at 1550, Until Sun03/21/21 at 1722, Routine, Intra-op [facility] lidocaine 1% (XYLOCAINE) 100 mg/10 mL (1 %) injection 03-21 20:50: 00 03-21 22:22 :23 No Slow IV Push, ONCE INTRA PROCEDURE, Starting Sun03/21/21 at 1550, Until Sun03/21/21 at 1722, Routine, Intra-op [facility] propofoL IV infusion 03-21 20:50: 00 03-21 22:22 :23 No IV Infusion, ONCE INTRA PROCEDURE, Starting Sun03/21/21 at 1550, Until Sun03/21/21 at 1722, Routine, Intra-op [facility] succinylcho line (QUELICIN) injection 03-21 20:50: 00 03-21 22:22 :23 No IV Push, ONCE INTRA PROCEDURE, Starting Sun03/21/21 at 1550, Until Sun03/21/21 at 1722, Routine, Intra-op [facility] metroNIDAZO LE in NaCl (iso-os) (FLAGYL I.V.) RTU IV infusion 500 mg 03-21 13:00: 00 Yes 500mg 500 mg, IV Infusion, BID, First dose on Sun03/21/21 at 0800, Until Discontinu ed, 100 mL
Reas on for Anti-Infec tive: Documented Infection< br>Documen sydni Infection Site: HEENT
D uration of Therapy: 7 days [facility] chlorhexidi ne (PERIDEX) 0.12 % mouthwash 15 mL 03-21 13:00: 00 Yes 15mL 15 mL, Oral (Swish And Spit Out), BID, First dose on Sun03/21/21 at 0800, Until Discontinu ed, Routine [facility] dexamethaso ne (DECADRON) 10 mg in NaCl 0.9% (NS) 50 mL piggyback 03-21 11:15: 00 03-22 03:44 :00 No 10mg 10 mg, IV Piggyback, Q8H, 3 doses, First dose (after last modificati on) on Sun03/21/21 at 0615, Last dose on Sun03/21/21 at 2200, 50 mL [facility] cefTRIAXone (ROCEPHIN) 2,000 mg in NaCl 0.9% (NS) 100 mL MINI-BAG 03-21 08:15: 00 03-22 13:41 :01 No 2000mg 2,000 mg, IV Piggyback, Q24H ABX, First dose on Sun03/21/21 at 0315, Until Discontinu ed, 100 mL
Reas on for Anti-Infec tive: Documented Infection< br>Documen sydni Infection Site: HEENT
D uration of Therapy: 7 days [facility] lactated ringers IV infusion 1,000 mL 03-21 07:15: 00 03-22 13:48 :56 No 1000mL at 125 mL/hr, 1,000 mL, IV Infusion, CONTINUOUS , Starting Sun03/21/21 at 0215, Until Sun03/22/21 at 0848, Routine [facility] naloxone (NARCAN) injection 0.1 mg 03-21 07:05: 55 Yes .1mg 0.1 mg, Slow IV Push, PRN - SEE INSTRUCTIO NS, Starting Sun03/21/21 at 0205, Until Discontinu ed, Routine, Sedation/R espiratory Depression , See admin instructio ns. [facility] HYDROcodone -acetaminop hen (HYCET) 7.5-325 mg/15 mL solution 7.5 mg 03-21 07:05: 55 Yes 7.5mg 7.5 mg, Oral, Q6HPRN, Starting Sun03/21/21 at 0205, Until Discontinu ed, Routine, Pain (scale 4-6) [facility] ibuprofen (ADVIL CHILDREN'S) 100 mg/5 mL oral suspension 600 mg 03-21 07:05: 55 Yes 600mg 600 mg, Oral, Q6HPRN, Starting Sun03/21/21 at 0205, Until Discontinu ed, Routine, Pain (scale 1-3) [facility] ondansetron (ZOFRAN (PF)) injection 4 mg 03-21 07:05: 55 Yes 4mg 4 mg, Slow IV Push, Q4HPRN, Starting Sun03/21/21 at 0205, Until Discontinu ed, Routine, Nausea and Vomiting (N/V) [facility] morpHINE injection 2 mg 03-21 07:05: 55 03-23 07:04 :55 No 2mg 2 mg, Slow IV Push, Q3HPRN, Starting Sun03/21/21 at 0205, Until Sun03/23/21 at 0204, Routine, Pain (scale 7-10) [facility] Vital Signs Vital Name Observation Time Observation Value Comments S ource Systolic blood pressure 2023-04-20 00:27:00 135 mm[Hg] [facility] Diastolic blood pressure 2023-04-20 00:27:00 90 mm[Hg] [facility] Heart rate 2023-04-20 00:27:00 76 /min [facility] Body temperature 2023-04-20 00:27:00 36.61 Ashtyn [facility] Respiratory rate 2023-04-20 00:27:00 18 /min [facility] Body height 2023-04-20 00:27:[address] [facility] Oxygen saturation in Arterial blood by Pulse oximetry 2023-04-20 00:27:00 100 /min [facility] Systolic blood pressure 2021-03-22 12:43:00 126 mm[Hg] [facility] Diastolic blood pressure 2021-03-22 12:43:00 90 mm[Hg] [facility] Heart rate 2021-03-22 12:43:00 74 /min [facility] Body temperature 2021-03-22 12:43:00 35.44 Ashtyn [facility] Respiratory rate 2021-03-22 12:43:00 18 /min [facility] Oxygen saturation in Arterial blood by Pulse oximetry 2021-03-22 12:43:00 98 /min [facility] Body height 2021-03-21 06:00:[address] [facility] Body weight 2021-03-21 06:00:[address] [facility] BMI 2021-03-21 06:00:00 18.34 kg/m2 [facility] Systolic blood pressure 2021-03-21 22:20:00 144 mm[Hg] [facility] Diastolic blood pressure 2021-03-21 22:20:00 90 mm[Hg] [facility] Heart rate 2021-03-21 22:20:00 94 /min [facility] Body temperature 2021-03-21 22:20:00 36 Ashtyn [facility] Respiratory rate 2021-03-21 22:20:00 18 /min [facility] Oxygen saturation in Arterial blood by Pulse oximetry 2021-03-21 22:20:00 100 /min [place] [facility] Body height 2021-03-21 06:00:[address] [facility] Body weight 2021-03-21 06:00:[address] [facility] BMI 2021-03-21 06:00:00 18.34 kg/m2 [facility] Procedures Procedure Date / Time Performed Performing Clinician Source NOTICE OF PRIVACY PRACTICES 2023-04-20 00:21:51 Doctor Unassigned, [place] [facility] CONSENT/REFUSAL FOR DIAGNOSIS AND TREATMENT 2023-04-20 00:21:04 Doctor Unassigned, [place] [facility] EXTERNAL PROVIDER RECORDS 2021-03-31 05:01:00 Do ctor Unassigned, [place] [facility] EXTRA TUBE LT. GREEN 2021-03-22 08:53:00 Megan Thakkar [facility] EXTRA TUBE LT. GREEN 2021-03-22 08:53:00 Megan Thakkar [facility] CBC WITH DIFF 2021-03-22 08:50:00 Joselito Soliz [facility] CBC WITH DIFF 2021-03-22 08:50:00 Heydi [facility] ASPIRATE OR ABSCESS CULTURE(AEROBIC/ANAEROBIC ) 2021-03-21 21:09:34 Albino Thakkar [facility] ASPIRATE OR ABSCESS CULTURE(AEROBIC/ANAEROBIC ) 2021-03-21 21:09:34 Albino Thakkar [facility] INTUBATION 2021-03-21 21:01:41 Guillermo Li [facility] INCISION AND DRAINAGE ORAL CAVITY 2021-03-21 20:31:00 Ablino Thakkar [facility] TOOTH EXTRACTION 2021-03-21 20:31:00 Albino Thakkar [facility] INCISION AND DRAINAGE ORAL CAVITY 2021-03-21 20:31:00 Albino Thakkar [facility] TOOTH EXTRACTION 2021-03-21 20:31:00 Albino Thakkar [facility] XR ORTHOPANTOGRAM TEETH 2021-03-21 08:41:42 Bola King [facility] XR ORTHOPANTOGRAM TEETH 2021-03-21 08:41:42 Bola King [facility] Encounters Start Date/Time End Date/Time Encounter Type Admission Type Attending Clinicians Care Facility Care Department Encounter ID Source 2021-03-21 01:50:00 Inpatient U ALBINO THAKKAR [facility] CAROL ANN [id number] [facility] 2024-04-08 10:32:00 2024-04-08 12:13:00 Emergency ER JEANETTE SALAS [facility] [id number] [facility] 2023-04-19 19:30:00 2023-04-19 20:46:00 Emergency X SERVANDO FLOREZ [facility] ERT [id number] [facility] 2023-04-19 19:30:00 2023-04-19 20:46:00 Emergency Servando Florez [facility] 1.0.114 [id number] [id number] [id number] [facility] 2021-03-31 00:00:00 2021-03-31 00:00:00 Orders Only Doctor Unassigned, [place] [facility] 1.840.114 350.1.13.10 4.2.7.2.686 [id number] [facility] 2021-03-23 00:00:00 2021-03-23 00:00:00 Transition of Care Venkatesh Kieramichele Fajardo 1.840.114 350.1.13.10 4.2.7.2.686 [id number] [facility] 2021-03-21 01:50:00 2021-03-22 12:25:00 Hospital Encounter Albino Thakkar [facility] 1.840.114 [id number] 4.2.7.2.686 [id number] [facility] 2021-03-21 16:01:00 2021-03-21 17:27:00 Surgery Jacquelynbretmaritza Albino Fernie [facility] [id number] 350.1.13.10 4.2.7.2.686 [id number] [facility] 2021-03-21 15:39:00 2021-03-21 17:22:00 Anesthesia Event Ermelinda Thompson, Jerome [facility] [id number] [id number] 4.2.7.2.686 [id number] [facility] 2021-03-20 18:41:00 2021-03-20 23:54:00 Emergency ER MEREDITHAINSLEY [facility] [id number] [facility] 2020-09-08 13:41:00 2020-09-08 15:04:00 Emergency ER LUPE SEYMOUR [facility] [id number] [facility] 2012-05-08 10:47:00 2012-05-08 13:15:00 Emergency ER SEBASTIÁNIRVING RITTER [facility] [id number] [facility] 2010-08-05 14:21:00 2010-08-05 14:21:00 Outpatient UR KORINA RESTREPO [facility] [id number] [facility] Results Test Description Test Time Test Comments Results Result Co mments Source [facility] WITH [id number] 10:20:24* Test Item Value Reference Range Interpretation Comme nts WBC (test code = 6690-2) See_Comment H [Automated message] The system which generated this result transmitted reference range: 4.20 - 10.70 10*3/?L. The reference range was not used to interpret this result as normal/abnormal. RBC (test code = 789-8) See_Comment [Automated message] The system which generated this result transmitted reference range: 4.26 - 5.52 10*6/?L. The reference range was not used to interpret this result as normal/abnormal. HGB (test code = 718-7) 12.6 g/dL 12.2-16.4 HCT (test code = 4544-3) 38.3 % 38.4-49.3 L MCV (test code = 787-2) 85.7 fL 81.7-95.6 MCH (test code = 785-6) 28.2 pg 26.1-32.7 MCHC (test code = 786-4) 32.9 g/dL 31.2-35.0 RDW-SD (test code = 21042-8) 39.8 fL 38.5-51.6 RDW-CV (test code = 788-0) 12.7 % 12.1-15.4 PLT (test code = 777-3) See_Comment H [Automated message] The system which generated this result transmitted reference range: 150 - 328 10*3/?L. The reference range was not used to interpret this result as normal/abnormal. MPV (test code = 91321-0) 10.4 fL 9.8-13.0 NRBC/100 WBC (test code = 4996362723) See_Comment [Automated message] The system which generated this result transmitted reference range: 0.0 - 10.0 /100 WBCs. The reference range was not used to interpret this result as normal/abnormal. NRBC x10^3 (test code = 2628371557) <0.01 See_Comment [Automated message] The system which generated this result transmitted reference range: 10*3/?L. The reference range was not used to interpret this result as normal/abnormal. GRAN MAT (NEUT) % (test code = 770-8) 94.3 % IMM GRAN % (test code = 4457667933) 0.50 % LYMPH % (test code = 736-9) 4.1 % MONO % (test code = 5905-5) 1.0 % EOS % (test code = 713-8) 0.0 % BASO % (test code = 706-2) 0.1 % GRAN MAT x10^3(ANC) (test code = 7275323598) 12.32 10*3/uL 1.99-6.95 H IMM GRAN x10^3 (test code = 2147416487) 0.07 10*3/uL 0.00-0.06 H LYMPH x10^3 (test code = 731-0) 0.53 10*3/uL 1.09-3.23 L MONO x10^3 (test code = 742-7) 0.13 10*3/uL 0.36-1.02 L EOS x10^3 (test code = 711-2) <0.03 0.06-0.53 L BASO x10^3 (test code = 704-7) <0.03 0.01-0.09 Lab Interpretation (test code = 50252-8) Abnormal [facility] 21:01:41Guillermo Li MD ? ? 03/21/2021 ?4:03 PMIntubation General Information and Staff Anesthesiologist: Jerome Baltazar MDPerformed: anesthesiologist Indications and Patient ConditionIndications for airway management: anesthesia and airway protectionSpontaneous Ventilation: absentSedation level: deepPreoxygenated: yesPatient position: reverse TrendelenburgMask difficulty assessment: 1 - vent by mask Final Airway DetailsFinal airway type: endotracheal airway Successful airway: [...] surgical team. ?Easy intubation with BURP maneuver [facility]th[facility], [id number] 15:15:04Left maxillary and mandibular 2nd molar teeth dental caries. Preliminary Report Dictated by Resident: Last Sparks reviewed this study and agree with the above reportwith the following additions: Right first mandibular molar dental caries. I, JerrodMaria Luz Enamorado MD., have reviewed this study and agree with theabove report.XR ORTHOPANTOGRAM [...] molar teeth dental caries.P[facility]ictated by [facility] t: Last Dunlap reviewed this study and agree with the above reportwith the following additions: Right first mandibular molar dental caries.Last Meehan MD., have reviewedthis study and agree with theabove report.[facility], [id number] 15:15:04Left maxillary and mandibular 2nd molar teeth dental caries. Preliminary Report Dictated by Resident: Last Sparks reviewed this study and agree with the above reportwith the following additions: Right first mandibular molar dental caries. Last Meehan MD., have reviewed this study and agree with theabove report.XR ORTHOPANTOGRAM TEETH HISTORY: 20 years- old; Male; dental exam COMPARISON: None FINDINGS: There [...] following additions: Right first mandibular molar dental caries.I, Last Rainey MD., have reviewedthis study and agree with theabove report.[facility]
--- NOTE | 2024-11-01 00:13 | EDPHYS ---
Physician Documentation [facility] Name: Juan Manuel Gupta Jr Age: 24 yrs Sex: Male : 2000 Arrival Date: 10/31/2024 Time: 23:49 Bed IW2 Private MD: ED Physician Justin Maya HPI: 11/01 00:41 This 24 yrs old Male presents to ER via Ambulatory with complaints of Flu rt Symptoms. 00:41 Patient presents to the ED with a hoarse throat since yesterday. States that he took a rt home influenza test that was positive. He denies other acute complaints at this time, symptoms are mild in severity, no other aggravating alleviating factors.. Historical: - Allergies: 00:12 No Known Allergies; br2 - Immunization history:: Adult Immunizations up to date. - Infectious Disease History:: Denies. - Social history:: Smoking status: Patient reports the use of cigarette tobacco products, smokes three packs cigarettes per day. Patient uses alcohol, occasionally. - Family history:: not pertinent. ROS: 00:41 Constitutional: Negative for fever, chills, and weight loss, Cardiovascular: Negative rt for chest pain, palpitations, and edema, Respiratory: Negative for shortness of breath, cough, wheezing, and pleuritic chest pain, Abdomen/GI: Negative for abdominal pain, nausea, vomiting, diarrhea, and constipation, 00:41 ENT: Positive for hoarseness, Negative for rhinorrhea, sore throat, Exam: 00:41 Constitutional: 00:41 Constitutional: This is a well developed, well nourished patient who is awake, alert, and in no acute distress. Head/Face: Normocephalic, atraumatic. Chest/axilla: Normal chest wall appearance and motion. Nontender with no deformity. No lesions are appreciated. Cardiovascular: Regular rate and rhythm with a normal S1 and S2. No gallops, murmurs, or rubs. Normal PMI, no JVD. No pulse deficits. Respiratory: Lungs have equal breath sounds bilaterally, clear to auscultation and percussion. No rales, rhonchi or wheezes noted. No increased work of breathing, no retractions or nasal flaring. Abdomen/GI: Soft, non-tender, with normal bowel sounds. No distension or tympany. No guarding or rebound. No evidence of tenderness throughout. Vital Signs: 00:04 BP 127 / 85; Pulse 79; Resp 18; Pulse Ox 100% ; Weight 58.97 kg; Height 5 ft. 5 in. ; br2 Pain 0/10; 00:04 Body Mass Index 21.63 (58.97 kg, 165.1 cm) br2 00:04 Pain Scale: Adult br2 MDM: 00:12 Medical Screening Exam initiated rt 00:41 Differential Diagnosis Influenza. Data reviewed: vital signs, nurses notes. Test rt considered but Not performed: Other Details Had a home positive influenza test, do not believe that repeat swabs will be helpful.. Counseling: I had a detailed discussion with the patient and/or guardian regarding the historical points, exam findings, and any diagnostic results supporting the discharge/admit diagnosis, the need for outpatient follow up, Discussed home care for influenza with the patient.. Administered Medications: No medications were administered Disposition Summary: 11/01/24 00:12 Discharge Ordered Notes: Location: Home rt Problem: new rt Symptoms: are unchanged rt Condition: Stable rt Diagnosis - Influenza rt Followup: rt - With: Private Physician - When: As needed - Reason: Discharge Instructions: - Discharge Summary Sheet rt - Influenza, Adult rt - Form - Excuse from Work, School, or Physical Activity br2 - Form - Return To Work br2 Forms: - Medication Reconciliation Form rt - Antibiotic Education rt - Prescription Opioid Use rt - Patient Portal Instructions rt - Leadership Thank You Letter rt - Work release form br2 - Family Work Release br2 Signatures: Justin Maya MD MD rt Richelle Hein RN RN br2
--- NOTE | 2024-11-01 00:13 | ER ---
Nurse's Notes [facility] Name: Juan Manuel Gupta Jr Age: 24 yrs Sex: Male : 2000 Arrival Date: 10/31/2024 Time: 23:49 Bed IW2 Private MD: Diagnosis: Influenza Presentation: 11/01 00:04 Chief complaint: Patient states: HOARSE, PT C/O CHILLS AND TOOK HOME TEST FOR FLU WHICH br2 WAS POSITIVE. DENIES THROAT PAIN. Coronavirus screen: Client denies travel out of the [place] in the last 14 days. Ebola Screen: Patient denies exposure to infectious person. Initial Sepsis Screen: Does the patient meet any 2 criteria? No. Patient's initial sepsis screen is negative. Does the patient have a suspected source of infection? No. Patient's initial sepsis screen is negative. Risk Assessment: Do you want to hurt yourself or someone else? Patient reports no desire to harm self or others. Onset of symptoms was November 01, 2024. 00:04 Method Of Arrival: Ambulatory br2 00:04 Acuity: IMTIAZ 5 br2 Triage Assessment: 00:12 General: Appears in no apparent distress. comfortable, Behavior is calm, cooperative. br2 Pain: Denies pain. 00:19 EENT: Reports HOARSE. br2 Historical: - Allergies: 00:12 No Known Allergies; br2 - Immunization history:: Adult Immunizations up to date. - Infectious Disease History:: Denies. - Social history:: Smoking status: Patient reports the use of cigarette tobacco products, smokes three packs cigarettes per day. Patient uses alcohol, occasionally. - Family history:: not pertinent. Vital Signs: 00:04 BP 127 / 85; Pulse 79; Resp 18; Pulse Ox 100% ; Weight 58.97 kg; Height 5 ft. 5 in. ; br2 Pain 0/10; 00:04 Body Mass Index 21.63 (58.97 kg, 165.1 cm) br2 00:04 Pain Scale: Adult br2 ED Course: 10/31 23:51 Patient arrived in ED. [id number] 23:53 Justin Maya MD is Attending Physician. rt 11/01 00:04 Richelle Hein RN is Primary Nurse. br2 00:12 Triage completed. br2 00:12 Arm band placed on right wrist. br2 Administered Medications: No medications were administered Outcome: 00:12 Discharge ordered by . rt 00:20 Patient left the ED. br2 Signatures: Ni Vásquez [id number] Justin Maya MD MD rt Richelle Hein RN RN br2
[2024-11-01 00:24] VITALS: BP 127/85; O2SAT 100
== END 2024-11-01 00:20 | disposition home or self-care (01) ==
LOC: ER 23:49
DX: J11.1 Influenza due to unidentified influenza virus with other respiratory manifestations (principal)
CPT/HCPCS: 99281